=== PATIENT | male | born 1980 | race Two or more races ===

== ENCOUNTER 2022-08-18 10:55 | Inpatient (IN) | payer MEDICAID ==
[~2022-08-18] VITALS: Ht 167.6 cm; Wt 83.1 kg
[2022-08-18] MEDS ORDERED: SODIUM CHLORIDE 0.9% 1,000 ML IV ONE ×2 (12:00)
[2022-08-18 12:53] LABS: Basophils # (auto) 0 10 ^3/uL (0-0.2); Basophils % (auto) 0.6 % (0.0-2.0); Eosinophils # (auto) 0.1 10 ^3/uL (0-0.8); Eosinophils % (auto) 0.9 % (0.0-7.0); Hemoglobin 15.7 g/dL (13.5-17.5); Lymphocytes # (auto) 2.4 10 ^3/uL (0.4-5.4); Lymphocytes % (auto) 33.5 % (10.0-50.0); Mean Corpuscular Hemoglobin 28.5 pg (28.0-32.0); Mean Corpuscular Volume 83.7 fL (80.0-100.0); Monocytes # (auto) 0.4 10 ^3/uL (0-1.3); Monocytes % (auto) 5.7 % (0.0-12.0); Neutrophils # (auto) 4.2 10 ^3/uL (1.6-8.6); Neutrophils % (auto) 59.3 % (37.0-80.0); Nucleated Red Blood Cells % 0.1 %; Red Cell Distribution Width 13.3 % (11.8-14.3); White Blood Cell 7.1 10^3/uL (4.4-10.8)
[2022-08-18 13:18] LABS: INR 0.92 (0.9-1.15); Partial Thromboplastin Time 27.6 sec (24.6-33.4)
[2022-08-18 13:19] LABS: Albumin 4.2 g/dL (3.4-5.0); BUN/Creatinine Ratio 19.1; Bilirubin, Total 1.1 mg/dL (0.2-1.0); Calcium 9.6 mg/dL (8.5-10.1); Potassium 4.2 mmol/L (3.5-5.1); Total Protein 7.5 g/dL (6.4-8.2)
[2022-08-18] MEDS ORDERED: CLOPIDOGREL BISULFATE 75 MG TAB PO ONE (17:00)
[2022-08-18] MEDS ORDERED: ASPirin 325 MG TAB PO ONE (17:00)
[2022-08-18] MEDS ORDERED: MORPHINE SULFATE INJ 2 MG/ml SYRG IV PRN (17:15)
[2022-08-18] MEDS ORDERED: NITROGLYCERIN 0.4 MG SL TAB SL PRN (17:15)
[2022-08-18 18:48] LABS: Cholesterol 195 mg/dL (< 200); HDL Cholesterol 41 mg/dL (40-59); LDL Cholesterol 128 mg/dL (< 100); Triglycerides 287 mg/dL (< 150)
[2022-08-18] MEDS: ATORVASTATIN 20 MG TAB PO SCH (23:45)
[2022-08-19 07:23] LABS: Basophils # (auto) 0 10 ^3/uL (0-0.2); Basophils % (auto) 0.6 % (0.0-2.0); Eosinophils # (auto) 0.1 10 ^3/uL (0-0.8); Eosinophils % (auto) 1.9 % (0.0-7.0); Hematocrit 43.6 % (41.0-53.0); Hemoglobin 15.1 g/dL (13.5-17.5); Lymphocytes # (auto) 2.4 10 ^3/uL (0.4-5.4); Lymphocytes % (auto) 34.3 % (10.0-50.0); Mean Corpuscular Hemoglobin 29.1 pg (28.0-32.0); Mean Corpuscular Hgb Conc. 34.7 g/dL (32.0-36.0); Mean Corpuscular Volume 83.9 fL (80.0-100.0); Monocytes # (auto) 0.4 10 ^3/uL (0-1.3); Monocytes % (auto) 5.2 % (0.0-12.0); Red Cell Distribution Width 13.5 % (11.8-14.3); White Blood Cell 6.9 10^3/uL (4.4-10.8)
[2022-08-19 07:50] LABS: Potassium 3.9 mmol/L (3.5-5.1)
[2022-08-19 07:58] LABS: BUN/Creatinine Ratio 18.1; Bilirubin, Total 0.8 mg/dL (0.2-1.0); Calcium 8.7 mg/dL (8.5-10.1); Total Protein 7.2 g/dL (6.4-8.2)
[2022-08-19] MEDS: ASPirin 81 mg TAB PO SCH (12:53)
[2022-08-19 14:55] VITALS: BP 102/64
[2022-08-19 18:00] VITALS: BP 116/71
[2022-08-19] MEDS ORDERED: LORazepam 2MG/ML-1ML VIAL IV PRN ×2 (20:30)
[2022-08-19] MEDS: FAMOTIDINE 20 MG TAB PO SCH (21:31)
[2022-08-19] MEDS: predniSONE 20 MG TAB PO SCH (21:32)
[2022-08-19] MEDS: ATORVASTATIN 20 MG TAB PO SCH (21:35)
[2022-08-20] MEDS: FAMOTIDINE 20 MG TAB PO SCH (10:19)
[2022-08-20] MEDS: ASPirin 81 mg TAB PO SCH (10:19)
[2022-08-20] MEDS: predniSONE 20 MG TAB PO SCH (10:20)
[2022-08-20] MEDS ORDERED: ASPI-325 PO (10:49)
[2022-08-20] MEDS ORDERED: ATOR10TA PO (10:50)
[2022-08-20 15:21] VITALS: BP 142/115
== END 2022-08-20 14:00 | disposition home or self-care (01) | DRG 47 ==
LOC: ER 10:55 → TELE 17:06 → TELE-CENTR 08-19 23:45
PROVIDERS: ADMIT Registered Nurse; ATTEND Internal Medicine
DX: G45.9 Transient cerebral ischemic attack, unspecified (principal); E78.5 Hyperlipidemia, unspecified; F17.200 Nicotine dependence, unspecified, uncomplicated; G51.0 Bell's palsy; H53.8 Other visual disturbances; Z20.822 Contact with and (suspected) exposure to COVID-19
CPT/HCPCS: 36415; 70450; 70551; 80053; 80061; 82962; 83036; 84443; 84484; 85025; 85610; 85730; 87426; 93306; 93886; 96360; 96361; G0378